=== PATIENT | female | born 1935 | race Caucasian/White ===

== ENCOUNTER 2020-08-21 08:12 | Emergency (ER) | payer MEDICARE, OTHER ==
[2020-08-21] MEDS ORDERED: Metoclopramide 10 MG/2 ML SDV IVPUSH ONE (08:33)
--- NOTE | 2020-08-21 08:36 | EDM.PDOC ---
ED HPI GENERAL MEDICAL PROBLEM - General Chief Complaint: Cardiovascular Problem Stated Complaint: HAD A SPELL THIS MORNING Time Seen by Provider: 08/21/20 08:20 Source of Information: Reports: Patient, Family ( daughter) History Limitations: Reports: No Limitations - History of Present Illness INITIAL COMMENTS - FREE TEXT/NARRATIVE: 85-year-old female presents to the ED in the accompaniment of her daughter. History is difficult to obtain. She states she felt unwell this morning while lying in bed after awakening. She felt like something popped or went off in her head. She has no dizziness or no problems with her balance or equilibrium. She walked into the ED on her own volition. She is mildly nauseated. She has had no emesis. No diarrhea. No noted fever or chills. No recent changes to any of her medications. Denies any recent falls or close head injuries. Denies any changes in her vision. Patient has not taken any of her normal medications this morning. Patient has had both of her COVID-19 vaccines. Onset: Today, Sudden Onset Date: 08/21/20 Onset Time: 07:30 Duration: Minutes:, Improving (What ever happened this morning was very transient.) Location: Reports: Head Quality: Reports: Other (Describes a pressure sensation in her head.) Severity: Mild Improves with: Reports: Other (Improved with time.) Worsens with: Reports: None Context: Reports: Other (Very nonspecific symptoms of something popping or feeling). Denies: Activity, Exercise, Lifting, Sick Contact, Trauma Associated Symptoms: Reports: Loss of Appetite, Malaise, Nausea/Vomiting (Nausea without vomiting). 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) (Has had no medications this morning.) - Related Data Allergies Allergy/AdvReac Type Severity Reaction Status Date / Time pseudoephedrine HCl AdvReac Tachycardia Verified 08/21/20 09:01 [From Bernardo] Home Meds: Home Meds Amitriptyline [Elavil] 25 mg PO DAILY 03/30/14 [History] Calcium Carb & Citrate/Vit D3 [Calcium + Vitamin D3 Caplet] 600 mg PO DAILY 03/30/14 [History] Multivitamin [Multivitamins] 1 tab PO DAILY 03/30/14 [History] Rivaroxaban [Xarelto] 20 mg PO DAILY 03/30/14 [History] Simvastatin [Zocor] 20 mg PO DAILY 03/30/14 [History] Vit C/E/Zn/Coppr/Lutein/Zeaxan [Preservision Areds 2 Softgel] 1 cap PO BID 03/30/14 [History] Furosemide 1 tab PO DAILY 08/21/20 [History] Oxybutynin Chloride [Ditropan Xl] 5 mg PO DAILY 08/21/20 [History] lisinopriL [Lisinopril] 10 mg PO DAILY 08/21/20 [History] polyethylene glycoL 3350 [MiraLAX] 1 dose PO ASDIRECTED 08/21/20 [History] Past Medical History Cardiovascular History: Reports: Afib (Chronic atrial fibrillation. She is on Xarelto.), High Cholesterol, Hypertension Genitourinary History: Reports: Urinary Incontinence Musculoskeletal History: Reports: Osteoarthritis (Particular involving her hands.) - Past Surgical History HEENT Surgical History: Reports: Cataract Surgery GI Surgical History: Reports: Appendectomy Musculoskeletal Surgical History: Reports: Shoulder Replacement ( total shoulder repair.), Other (See Below) (Right total knee replacement) Social & Family History - Living Situation & Occupation Living situation: Reports: Occupation: Retired ED ROS GENERAL - Review of Systems Review Of Systems: See Below Constitutional: Reports: Fatigue, Decreased Appetite. Denies: Fever, Chills, Malaise, Weakness, Weight Loss HEENT: Reports: Glasses, Other (Has had previous cataract extractions and bilateral intraocular lens placements) Respiratory: Denies: Shortness of Breath, Wheezing, Pleuritic Chest Pain, Cough, Sputum Cardiovascular: Reports: Blood Pressure Problem. 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 Heart rate 66 and sinus. Respiratory is 18 with O2 sats of 96% room air. BP 146/67.) Eye Exam: Bilateral Eye: Normal Inspection, PERRL (No scleral icterus or blepharal pallor.) Throat/Mouth: Normal Inspection (Tongue is mildly dry.), Normal Lips, Normal Oropharynx, Other. No: Normal Teeth Head: Atraumatic, Normocephalic Neck: Normal Inspection, Supple, Non-Tender, Full Range of Motion. No: Carotid Bruit, Lymphadenopathy (L), Lymphadenopathy (R) Respiratory/Chest: No Respiratory Distress, Lungs Clear, Normal Breath Sounds, No Accessory Muscle Use Cardiovascular: Normal Peripheral Pulses, Regular Rate, Rhythm, No Edema, No Gallop, No Murmur, No Rub Peripheral Pulses: 2+: Carotid (L), Carotid (R), Posterior Tibial (L), Posterior Tibial (R), Dorsalis Pedis (L), Dorsalis Pedis (R) GI/Abdominal: Normal Bowel Sounds, Soft, Non-Tender, No Organomegaly, No Abnormal Bruit, No Mass, Pelvis Stable, Other (Mildly obese. Multiple surgical scars) Back Exam: Normal Inspection, Full Range of Motion, Other (Mildly increased lordotic curvature lumbar spine). No: CVA Tenderness (L), CVA Tenderness (R) Extremities: Pedal Edema Neurological: Alert (Trace pedal edema both lower extremities 1+ and symmetrical), Oriented, CN II-XII Intact, Normal Cognition, No Motor/Sensory Deficits, Other (Normal rapid alternating movements. No pronator drift.) Psychiatric: Normal Affect, Normal Mood Skin Exam: Warm, Dry, Intact, Normal Color, No Rash #1 Interpretation EKG Date: 08/21/20 Time: 08:47 Rhythm: A-Fib Rate (Beats/Min): 56 [place]: RAD-Right [place] Deviation (Mild right axis deviation 98 degrees) P-Wave: Absent QRS: Other (Decreased voltage both limb and precordial leads) ST-T: Other (T wave flattening aVL nonspecific finding) QT: Normal EKG Interpretation Comments: Abnormal ECG Course - Vital Signs Last Recorded V/S: Last Vital Signs Temp 36.3 C 08/21/20 08:50 Pulse 78 08/21/20 08:50 Resp 18 08/21/20 08:50 BP 159/91 H 08/21/20 08:50 Pulse Ox 96 08/21/20 08:29 - Orders/Labs/Meds Orders: Active Orders 24 hr Category Date Time Status EKG Documentation Completion [RC] STAT Care 08/21/20 08:32 Active Dextrose 5%-0.9% NaCl [Dextrose 5%-Normal Saline] 1,000 Med 08/21/20 08:45 Active ml IV ASDIRECTED Medication Orders Dextrose/Sodium Chloride (Dextrose 5%-Normal Saline) 1,000 mls @ 150 mls/hr IV ASDIRECTED SHADIA Last Admin: 08/21/20 08:49 Dose: 150 mls/hr Documented by: JUANY Labs: Laboratory Tests 08/21/20 08/21/20 08/21/20 Range/Units 08:43 08:43 08:43 WBC 4.08 (3.98-10.04) K/mm3 RBC 3.99 (3.98-5.22) M/mm3 Hgb 12.2 (11.2-15.7) gm/dl Hct 37.9 (34.1-44.9) % MCV 95.0 H D (79.4-94.8) fl MCH 30.6 (25.6-32.2) pg MCHC 32.2 (32.2-35.5) g/dl RDW Std Deviation 43.9 (36.4-46.3) fL Plt Count 209 (182-369) K/mm3 MPV 11.2 (9.4-12.3) fl Neut % (Auto) 59.3 (34.0-71.1) % Lymph % (Auto) 25.5 (19.3-51.7) % [place] % (Auto) 11.3 (4.7-12.5) % Eos % (Auto) 3.2 (0.7-5.8) Baso % (Auto) 0.5 (0.1-1.2) % Neut # (Auto) 2.42 (1.56-6.13) K/mm3 Lymph # (Auto) 1.04 L (1.18-3.74) K/mm3 [place] # (Auto) 0.46 H (0.24-0.36) K/mm3 Eos # (Auto) 0.13 (0.04-0.36) K/mm3 Baso # (Auto) 0.02 (0.01-0.08) K/mm3 PT 12.6 H (9.7-12.0) SECONDS INR 1.18 APTT 30.1 (21.7-31.4) SECONDS Sodium 142 (136-145) mEq/L Potassium 4.5 (3.5-5.1) mEq/L Chloride 105 (98-107) mEq/L Carbon Dioxide 26 (21-32) mEq/L Anion Gap 15.5 H (5-15) BUN 19 H (7-18) mg/dL Creatinine 1.1 H (0.55-1.02) mg/dL Est Cr Clr Drug Dosing 25.88 mL/min Estimated GFR (MDRD) 47 (>60) mL/min BUN/Creatinine Ratio 17.3 (14-18) Glucose 96 (70-99) mg/dL Calcium 9.0 (8.5-10.1) mg/dL Magnesium 3.1 H (1.8-2.4) mg/dL Total Bilirubin 0.4 (0.2-1.0) mg/dL AST 17 (15-37) U/L ALT 18 (14-59) U/L Alkaline Phosphatase 55 (46-116) U/L CK-MB (CK-2) (0-3.6) ng/ml Troponin I 0.072 H* (0.00-0.056) ng/mL C-Reactive Protein <0.2 (<1.0) mg/dL NT-Pro-B Natriuret Pep (0-450) pg/mL Total Protein 7.3 (6.4-8.2) g/dl Albumin 3.7 (3.4-5.0) g/dl Globulin 3.6 gm/dL Albumin/Globulin Ratio 1.0 (1-2) Urine Color (Yellow) Urine Appearance (Clear) Urine pH (5.0-8.0) Ur Specific [place] (1.005-1.030) Urine Protein (Negative) Urine Glucose (UA) (Negative) Urine Ketones (Negative) Urine Occult Blood (Negative) Urine Nitrite (Negative) Urine Bilirubin (Negative) Urine Urobilinogen (0.2-1.0) Ur Leukocyte Esterase (Negative) Urine RBC (0-5) /hpf Urine WBC (0-5) /hpf Ur Epithelial Cells (0-5) /hpf Urine Bacteria (FEW) /hpf Urine Mucus (FEW) /hpf 08/21/20 08/21/20 08/21/20 Range/Units 08:43 09:19 10:22 WBC (3.98-10.04) K/mm3 RBC (3.98-5.22) M/mm3 Hgb (11.2-15.7) gm/dl Hct (34.1-44.9) % MCV (79.4-94.8) fl MCH (25.6-32.2) pg MCHC (32.2-35.5) g/dl RDW Std Deviation (36.4-46.3) fL Plt Count (182-369) K/mm3 MPV (9.4-12.3) fl Neut % (Auto) (34.0-71.1) % Lymph % (Auto) (19.3-51.7) % [place] % (Auto) (4.7-12.5) % Eos % (Auto) (0.7-5.8) Baso % (Auto) (0.1-1.2) % Neut # (Auto) (1.56-6.13) K/mm3 Lymph # (Auto) (1.18-3.74) K/mm3 [place] # (Auto) (0.24-0.36) K/mm3 Eos # (Auto) (0.04-0.36) K/mm3 Baso # (Auto) (0.01-0.08) K/mm3 PT (9.7-12.0) SECONDS INR APTT (21.7-31.4) SECONDS Sodium (136-145) mEq/L Potassium (3.5-5.1) mEq/L Chloride (98-107) mEq/L Carbon Dioxide (21-32) mEq/L Anion Gap (5-15) BUN (7-18) mg/dL Creatinine (0.55-1.02) mg/dL Est Cr Clr Drug Dosing mL/min Estimated GFR (MDRD) (>60) mL/min BUN/Creatinine Ratio (14-18) Glucose (70-99) mg/dL Calcium (8.5-10.1) mg/dL Magnesium (1.8-2.4) mg/dL Total Bilirubin (0.2-1.0) mg/dL AST (15-37) U/L ALT (14-59) U/L Alkaline Phosphatase (46-116) U/L CK-MB (CK-2) 1.7 (0-3.6) ng/ml Troponin I (0.00-0.056) ng/mL C-Reactive Protein (<1.0) mg/dL NT-Pro-B Natriuret Pep 590 H (0-450) pg/mL Total Protein (6.4-8.2) g/dl Albumin (3.4-5.0) g/dl Globulin gm/dL Albumin/Globulin Ratio (1-2) Urine Color Yellow (Yellow) Urine Appearance Clear (Clear) Urine pH 7.0 (5.0-8.0) Ur Specific [place] 1.015 (1.005-1.030) Urine Protein Negative (Negative) Urine Glucose (UA) Negative (Negative) Urine Ketones Negative (Negative) Urine Occult Blood Negative (Negative) Urine Nitrite Negative (Negative) Urine Bilirubin Negative (Negative) Urine Urobilinogen 0.2 (0.2-1.0) Ur Leukocyte Esterase 1+ H (Negative) Urine RBC 0-5 (0-5) /hpf Urine WBC 0-5 (0-5) /hpf Ur Epithelial Cells 5-10 H (0-5) /hpf Urine Bacteria Few (FEW) /hpf Urine Mucus Few (FEW) /hpf Meds: Medications Generic Name Dose Route Start Last Admin Trade Name Freq PRN Reason Stop Dose Admin Dextrose/Sodium Chloride 1,000 mls @ 150 mls/hr 08/21/20 08:45 08/21/20 08:49 Dextrose 5%-Normal Saline IV 150 mls/hr ASDIRECTED SHADIA Administration Discontinued Medications Generic Name Dose Route Start Last Admin Trade Name Freq PRN Reason Stop Dose Admin Metoclopramide HCl 7.5 mg 08/21/20 08:33 08/21/20 08:47 Metoclopramide 10 Mg/2 Ml Sdv IVPUSH 08/21/20 08:34 7.5 mg ONETIME ONE Administration - Radiology Interpretation Free Text/Narrative:: 85 year-old female presents to the ED with nonspecific symptoms of something not right in her head. She felt a popping sensation in her head this morning when she was lying in bed after awakening. Development of nausea after this with no change in visual acuity and no changes in her ability to walk or ambulate. She has a mild headache at this time. He states she just does not feel right. Of note the patient has a history of chronic atrial fibrillation with a slow heart rate in the 50s. She is on Xarelto 20 mg daily. Neuro exam was grossly normal in the ED. Plan routine labs to be performed including a urinalysis. 1 view chest x-ray and CT head to be done. - Re-Assessments/Exams Free Text/Narrative Re-Assessment/Exam: 08/21/20 09:31 chest x-ray done portably reveals mild cardiomegaly. Slight scarring is appreciated overlying the upper left cardiac apex. There may be minimal pulmonary vascular congestion. Lungs otherwise are clear with no acute parenchymal change. Minimal scoliosis is noted within the spine. Bony structures are very osteopenic. CT of the head is been completed without contrast. Ventricles along with the basal cisterns and sulci over the convexities are mildly prominent. Moderate areas of diminished density are noted within the periventricular and subcortical white matter. Small areas of this diminished density are also noted within the basal ganglia. These findings are compared with small vessel ischemic demyelination change which is fairly stable from prior head CT exam. No other abnormal parenchymal densities are seen. No evidence of intracranial hemorrhage is seen. No midline shift or mass-effect is identified. Bone window settings were reviewed. Diffuse atherosclerotic calcification is seen within the carotid siphon. Visualized mastoid sinuses and paranasal sinuses show nothing acute. No acute calvarial abnormalities appreciated. 08/21/20 10:21 Normal white count at 4.08. Differential shows 59% neutrophils on the auto differential. Hemoglobin 12.2 with a hematocrit of 37.9. MCV slightly elevated at 95.0. Platelet count normal at 209,000. PT is 12.6 slightly elevated with an INR of 1.18 again slightly elevated. PTT is 30.1. Sodium is 142 with a potassium of 4.5. Chloride 105 with a bicarb of 26. Anion gap is 15.5. BUN is 19 with a creatinine of 1.1 and a GFR 47. Glucose is 96 with a calcium of 9.0. Magnesium is elevated at 3.1. Liver function normal. Troponin I mildly elevated at 0.072. C-reactive protein less than 0.2 BNP 590. Total protein 7.3 with a albumin fraction of three 3.7. 08/21/20 10:38 Urinalysis reveals 1+ leukocyte esterase but 0-5 WBCs and a few epithelial cells suggesting contamination. 08/21/20 10:52 the CK MB fraction is 1.7 and therefore her elevated troponin appears to be due to congestive failure. I have discussed the findings of the labs and the CT of the head and plain film of the chest with the patient and her daughter. They were reassured that at this point time I could find no major abnormalities other than mild congestive heart failure which is expected for her age. The mild bump in her troponin is secondary to congestive failure. I could find no reason for her to have the head discomfort which he describes as a spell this morning. At this point time advise no medication changes continue what she is on. She will be discharged in the care of her daughter at this time. Departure - Departure Time of Disposition: 11:01 Disposition: Home, Self-Care 01 Reason for Transfer *Q: Other Condition: Good Clinical Impression: Pain in head Qualifiers: Headache type: paroxysmal hemicrania Intractability: not intractable Referrals: Mandy Huang MD [Primary Care Provider] - Forms: ED Department Discharge Additional Instructions: Evaluation in the emergency room today in regards to development of forehead mid facial pain upon awakening this morning or that woke you up from sleep. The caus e for this is not clear. CT of the head reveals no abnormalities of the brain particular no bleeding into the brain. It reveals age-appropriate degenerative changes. Lab test proved also to be essentially normal other than very mild congestive heart failure expected for your age. The urine test also proved to be negative for any signs of infection. At this time I would not offer any change in treatment plan or change in medications. Follow-up with personal care physician if any further problems occur. Sepsis Event Note (ED) - Evaluation Sepsis Screening Result: No Definite Risk - Focused Exam Vital Signs: Vital Signs Temp Pulse Resp BP Pulse Ox 08/21/20 08:50 36.3 C 78 18 159/91 H 08/21/20 08:29 36.4 C 66 18 146/67 H 96 - My Orders Last 24 Hours: My Active Orders 08/21/20 08:32 EKG Documentation Completion [RC] STAT 08/21/20 08:45 Dextrose 5%-0.9% NaCl [Dextrose 5%-Normal Saline] 1,000 ml IV ASDIRECTED - Assessment/Plan Last 24 Hours: My Active Orders 08/21/20 08:32 EKG Documentation Completion [RC] STAT 08/21/20 08:45 Dextrose 5%-0.9% NaCl [Dextrose 5%-Normal Saline] 1,000 ml IV ASDIRECTED
[2020-08-21] MEDS ORDERED: Dextrose 5%-0.9% NaCl 1,000 ML IV SCH (08:45)
[2020-08-21 09:00] VITALS: BP 159/91; PULSE 78
--- NOTE | 2020-08-21 09:16 | CR ---
Chest: Portable view of the chest was obtained. Comparison: Prior chest x-rays on 03/31/14 and 03/30/14. Heart is enlarged. Slight scarring is noted overlying the upper left cardiac apex. There may be minimal pulmonary vascular congestion. Lungs otherwise are clear with no acute parenchymal change. Minimal scoliosis is noted within the spine. Bony structures are osteopenic. Impression: 1. Cardiomegaly and possible minimal pulmonary vascular congestion. 2. Nothing acute is otherwise seen on portable chest x-ray. Diagnostic code #3
--- NOTE | 2020-08-21 09:20 | CT ---
Head CT Technique: Multiple axial sections through the brain were obtained. Intravenous contrast was not utilized. Reconstructed coronal and sagittal images were obtained. Comparison: Prior head CT study of 03/30/14. Findings: Ventricles along with basal cisterns and sulci over the convexities are mildly prominent. Moderate areas of diminished density are noted within the periventricular and subcortical white matter. Small areas of this diminished density are noted within the basal ganglia. These findings are compatible with small vessel ischemic demyelination change which is fairly stable from prior head CT exam. No other abnormal parenchymal densities are seen. No evidence of intracranial hemorrhage is seen. No midline shift or mass-effect is seen. Bone window settings were reviewed. Diffuse atherosclerotic calcification is seen within the carotid siphon. Visualized mastoid sinuses and paranasal sinuses show nothing acute. No acute calvarial abnormality is appreciated. Impression: 1. Senescent change as described above appearing fairly stable from prior head CT study. 2. No acute intracranial abnormality is appreciated. Diagnostic code #2
== END 2020-08-21 11:21 | disposition home or self-care (01) ==
LOC: JD.ED 08:12
DX: G44.51 Hemicrania continua (principal); I10 Essential (primary) hypertension; Z88.8 Allergy status to other drugs, medicaments and biological substances; Z79.899 Other long term (current) drug therapy; Z90.49 Acquired absence of other specified parts of digestive tract
CPT/HCPCS: 36415; 70450; 71045; 80053; 81001; 82553; 83735; 83880; 84484; 85025; 85610; 85730; 86140; 93005; 96374; 99284; J2765; J7042; 93010

== ENCOUNTER 2022-07-06 12:06 | Emergency (ER) | payer MEDICARE, OTHER ==
[2022-07-06 12:51] VITALS: BP 151/71; PULSE 78
[2022-07-06] MEDS ORDERED: Aspirin 81 MG Tab.Chew PO ONE (13:07)
[2022-07-06] MEDS ORDERED: Sodium Chloride 0.9% 10 ML Syringe FLUSH PRN (13:07)
[2022-07-06 13:57] LABS: BASOPHILS ABSOLUTE AUTO 0.05 K/mm3 (0.01-0.08); BASOPHILS PERCENT AUTO 0.8 % (0.1-1.2); EOSINOPHILS ABSOLUTE AUTO 0.26 K/mm3 (0.04-0.36); EOSINOPHILS PERCENT AUTO 4.1 (0.7-5.8); HEMATOCRIT 37.4 % (34.1-44.9); HEMOGLOBIN 11.7 gm/dl (11.2-15.7); LYMPHOCYTES PERCENT AUTO 25.5 % (19.3-51.7); MEAN CORPUSCULAR HEMOGLOBIN 28.7 pg (25.6-32.2); MEAN CORPUSCULAR HGB CONC 31.3 g/dl (32.2-35.5); MEAN CORPUSCULAR VOLUME 91.7 fl (79.4-94.8); MEAN PLATELET VOLUME 10.5 fl (9.4-12.3); MONOCYTES ABSOLUTE AUTO 0.69 K/mm3 (0.24-0.36); NEUTROPHILS ABSOLUTE AUTO 3.68 K/mm3 (1.56-6.13); NEUTROPHILS PERCENT AUTO 58.6 % (34.0-71.1); PLATELET COUNT,PLT 201 K/mm3 (182-369); RED BLOOD CELL COUNT 4.08 M/mm3 (3.98-5.22); WHITE BLOOD CELL COUNT,WBC 6.28 K/mm3 (3.98-10.04)
[2022-07-06 14:19] LABS: ALBUMIN 3.8 g/dl (3.4-5.0); ANION GAP 11.7 (5-15); BILIRUBIN TOTAL 0.5 mg/dL (0.2-1.0); CALCIUM 9.4 mg/dL (8.5-10.1); CREATININE 1.2 mg/dL (0.55-1.02); EST CRCL DRUG DOSING (CG) 29.75 mL/min; POTASSIUM,K 4.7 mEq/L (3.5-5.1); PROTEIN TOTAL,TP 7.7 g/dl (6.4-8.2)
== END 2022-07-06 16:42 | disposition home or self-care (01) ==
LOC: JD.ED 12:06
DX: I48.91 Unspecified atrial fibrillation (principal); R42 Dizziness and giddiness; R77.8 Other specified abnormalities of plasma proteins; E78.00 Pure hypercholesterolemia, unspecified; I10 Essential (primary) hypertension; Z87.891 Personal history of nicotine dependence; Z79.01 Long term (current) use of anticoagulants; Z79.02 Long term (current) use of antithrombotics/antiplatelets; Z79.899 Other long term (current) drug therapy; Z88.8 Allergy status to other drugs, medicaments and biological substances
CPT/HCPCS: 36415; 71045; 80053; 84484; 85025; 93005; 99285; A9270; J3490; 93010

== ENCOUNTER 2023-01-22 07:03 | Emergency (ER) | payer MEDICARE, OTHER ==
[2023-01-22 07:52] LABS: BASOPHILS PERCENT AUTO 0.3 % (0.0-1.0); EOSINOPHILS ABSOLUTE AUTO 0.2 K/mm3 (0.0-0.4); EOSINOPHILS PERCENT AUTO 1.4 % (0.0-6.0); HEMATOCRIT 36.1 % (37.0-47.0); HEMOGLOBIN 11.7 gm/dl (12.0-16.0); IMMATURE GRAN ABSOLUTE AUTO 0.02 K/mm3 (0.00-0.05); IMMATURE GRAN PERCENT AUTO 0.2 % (0.0-0.4); LYMPHOCYTES ABSOLUTE AUTO 0.5 K/mm3 (1.0-4.8); LYMPHOCYTES PERCENT AUTO 4.6 % (24.0-44.0); MEAN CORPUSCULAR HEMOGLOBIN 29.3 pg (28.0-32.0); MEAN CORPUSCULAR HGB CONC 32.4 g/dl (32.0-36.0); MEAN CORPUSCULAR VOLUME 90.5 fl (83.0-99.0); MEAN PLATELET VOLUME 10.8 fl (9.4-12.3); MONOCYTES ABSOLUTE AUTO 0.9 K/mm3 (0.0-0.8); MONOCYTES PERCENT AUTO 8.2 % (0.0-8.0); NEUTROPHILS ABSOLUTE AUTO 9.3 K/mm3 (1.8-7.7); NEUTROPHILS PERCENT AUTO 85.3 % (41.0-71.0); PLATELET COUNT,PLT 182 K/mm3 (150-400); RED BLOOD CELL COUNT 3.99 M/mm3 (4.10-5.30); WHITE BLOOD CELL COUNT,WBC 10.91 K/mm3 (3.9-11.3)
[2023-01-22] MEDS ORDERED: Sodium Chloride 0.9% 1,000 ML IV ONE (07:56)
[2023-01-22 07:57] LABS: A/G RATIO 0.9 (1-2); ALBUMIN 3.4 g/dl (3.4-5.0); ANION GAP 14.3 (5-15); BILIRUBIN TOTAL 0.3 mg/dL (0.2-1.0); BUN/CREATININE RATIO 19.2 (14-18); CREATININE 1.3 mg/dL (0.55-1.02); EST CRCL DRUG DOSING (CG) 26.4 mL/min; MAGNESIUM 1.6 mg/dL (1.8-2.4); POTASSIUM,K 4.3 mEq/L (3.5-5.1); PROTEIN TOTAL,TP 7.4 g/dl (6.4-8.2)
[2023-01-22] MEDS ORDERED: Sodium Chloride 0.9% 10 ML Syringe FLUSH PRN (07:57)
[2023-01-22 08:04] LABS: CORONAVIRUS COVID-19 NAA NEGATIVE (NEGATIVE); INFLUENZA A NAA NEGATIVE (NEGATIVE)
[2023-01-22] MEDS ORDERED: Ondansetron 4 MG/2 ML SDV IVPUSH ONE (08:05)
[2023-01-22 08:28] LABS: APPEARANCE,URINE CLEAR (Clear); BILIRUBIN,URINE NEGATIVE (Negative); COLOR,URINE YELLOW (Yellow); GLUCOSE,URINE NEGATIVE (Negative); KETONES,URINE NEGATIVE (Negative); LEUKOCYTE ESTERASE,URINE 1+ (Negative); NITRITE,URINE NEGATIVE (Negative); OCCULT BLOOD,URINE NEGATIVE (Negative); PH,URINE 5.5 (5.0-8.0); PROTEIN,URINE NEGATIVE (Negative); UROBILINOGEN,URINE 0.2 (0.2-1.0)
[2023-01-22 09:02] LABS: RBC,URINE 0-5 /hpf (0-5); RENAL EPITHELIAL CELLS,URINE 0-5 /hpf (0-5)
[2023-01-22 09:03] LABS: BACTERIA,URINE MODERATE /hpf (FEW); MUCUS,URINE MODERATE /hpf (FEW)
[2023-01-22] MEDS ORDERED: Nitrofurantoin Monohydrate/Macrocrystalline 100 MG Cap PO ONE (09:10)
[2023-01-22 16:13] VITALS: BP 128/62; PULSE 78
== END 2023-01-22 09:25 | disposition home or self-care (01) ==
LOC: JD.ED 07:03
DX: A08.4 Viral intestinal infection, unspecified (principal); E78.00 Pure hypercholesterolemia, unspecified; I10 Essential (primary) hypertension; Z20.822 Contact with and (suspected) exposure to COVID-19; Z79.899 Other long term (current) drug therapy; Z88.8 Allergy status to other drugs, medicaments and biological substances; Z90.49 Acquired absence of other specified parts of digestive tract
CPT/HCPCS: 0240U; 36415; 80053; 81001; 83735; 85025; 96361; 96374; 99284; 99284-25; J2405; J3490; J7030